=== PATIENT | male | born 1945 | race Caucasian/White ===

== ENCOUNTER → 2016-06-15 | Day surgery (SDC) | payer MEDICARE, BC ==
[~2016-06-15] MED LIST: ACETAMINOPHEN650 M3 PO; SYMBICORT INH
--- NOTE | ~2016-06-15 | OR ---
Unit #: [id number] #: [id number] Patient: SAROJ MARTINES [id number] [address] [place], [place] [address] [id number] MR#: [id number] NAME: SAROJ MARTINES ROOM: Date of Procedure: 06/15/2016 Admission Date: 06/15/2016 Surgeon: Stuart Parry M.D. : 1945 Attending Physician: Stuart Parry M.D. Referring Physician: Stuart Parry M.D. Primary Care Physician: Christi Baron M.D. OPERATIVE REPORT PRIMARY CARE PHYSICIAN Christi Baron M.D. PREOPERATIVE DIAGNOSIS Colorectal cancer screening in an average-risk patient. PROCEDURES PERFORMED Colonoscopy and polypectomy. POSTOPERATIVE DIAGNOSES 1. The patient had 3 sessile polyps, one each in the cecum, descending colon, and sigmoid colon. These ranged in size from 5 mm to 8 mm each. All were sessile and were removed using snare polypectomy. 2. [id number] sigmoid and descending colon diverticulosis. 3. Small internal hemorrhoids. 4. Rest of the examination up to cecum was normal. The quality of the prep was excellent. RECOMMENDATIONS 1. Follow up results of polyp histology. 2. Consider repeat colonoscopy in 5 years. SEDATION USED MAC. DESCRIPTION OF PROCEDURE Following detailed explanation of potential risks and complications of a colonoscopy, namely perforation, bleeding, and complications related to sedation, the patient was brought to GI lab and laid in the left lateral decubitus position. A digital rectal examination was performed, which was normal. Lubricated tip of the Olympus video colonoscope was inserted through the anus and advanced under direct vision. The scope was advanced and passed up to sigmoid into descending colon. Multiple medium-sized diverticula were seen in this area. The scope tip was then navigated all the way up to cecum with visualization of the ileocecal valve and the appendiceal orifice. Preparation was excellent with good visualization and photodocumentation was obtained. Successive segments of the colonic mucosa were examined upon withdrawal. The patient was noted to have 3 sessile polyps, one each in the cecum, proximal descending colon, and proximal sigmoid colon. These ranged in size from 5 mm to 8 mm each. All were removed using snare polypectomy, retrieved and sent for histology. No additional polyps were noted. Other than the left-sided diverticula, Unit #: [id number] #: [id number] Patient: SAROJ MARTINES the patient was also noted to have small internal hemorrhoids at anal verge. The scope was withdrawn. The patient returned to the recovery area. He tolerated the procedure without any postprocedure complications. Dictated by... Westley Guallpa/jacob TD: 06/15/2016 23:02 JOB #: [id number] OPERATIVE REPORT X Stuart Parry MD X PROCEDURE OPERATIVE NOTE
== END | disposition home or self-care (01) ==
LOC: COPS 08:31
DX: Z12.11 Encounter for screening for malignant neoplasm of colon (principal); D12.0 Benign neoplasm of cecum; D12.4 Benign neoplasm of descending colon; K63.5 Polyp of colon; K57.30 Diverticulosis of large intestine without perforation or abscess without bleeding; K64.8 Other hemorrhoids; J44.9 Chronic obstructive pulmonary disease, unspecified; F17.210 Nicotine dependence, cigarettes, uncomplicated; Z79.899 Other long term (current) drug therapy; Z98.890 Other specified postprocedural states
CPT/HCPCS: 88305